=== PATIENT | male | born 1985 | race Caucasian/White ===

== ENCOUNTER 2019-06-29 14:00 | Emergency (ER) | payer OTHER, SELFPAY ==
[2019-06-29 14:02] VITALS: BP 159/115; PULSE 96; RESP 16; TEMP 35.6; O2SAT 99; BMI 40.1
--- NOTE | 2019-06-29 14:12 | CT_ITS ---
STUDY: CT ABDOMEN AND PELVIS WITHOUT CONTRAST REASON FOR EXAM: Male, 33 years old. PT STATED RT SIDE ABDOM PAIN X 4 DAYS, RADIATES TO BACK RADIATION DOSAGE (If Supplied By Facility): CTDIvol = ( 33.57 ) mGy, DLP = ( 2114.04 ) mGycm TECHNIQUE: Transaxial images were obtained from the dome of the diaphragm to the symphysis pubis without oral contrast, and without intravenous contrast. Sagittal and coronal images were reconstructed. Individualized dose optimization techniques were used for this CT. COMPARISON: None. FINDINGS: The visualized lung bases are unremarkable. The visualized portions of the heart are within normal limits. There is decreased attenuation of the liver consistent with steatosis. Normal gallbladder and extrahepatic biliary system. Normal spleen. Normal pancreas. Normal bilateral adrenal glands. Normal right kidney. Normal left kidney. There is a small hiatal hernia. Normal small intestine. Normal colon. The appendix is visualized and appears normal. Normal abdominal aorta. Normal inferior vena cava. Normal retroperitoneum. Normal urinary bladder. Normal abdominal wall. Mild degree of disc space narrowing and spondylosis at the L3-L4 level. CT/Abdomen/Pelvis without Cont IMPRESSION: Fatty infiltration of the liver. Electronically Signed: Truman Warren, at 15:05 EDT , Service support ,
--- NOTE | 2019-06-29 14:13 | ED.VISSUMM ---
- ER Visit Summary Date of Service: 06/29/19 Chief Complaint: Right flank pain History of Present Illness: The patient is a 33 M who presents with right flank pain. Started 3 days ago. He has sharp pains in his right flank that radiates forward. He went to an urgent care the day it started and they thought it was a pulled muscle so they gave him ibuprofen and muscle relaxers. He states that these are not helping. He denies any fevers. No nausea vomiting. Denies any urinary symptoms. He has no history of kidney stones. The pain is been constant for the 3 days. Physical Examination: Vital signs reviewed. HEENT exam unremarkable. Heart is regular rate and rhythm without murmurs. Lungs are clear to auscultation. Abdomen is soft and nontender. Extremities reveal no edema. Skin exam normal. Neurologic exam normal. Test Results: [] Emergency Department Course and Treatment: [] Treatment Plan: [] Disposition: [] Impression: [] This note was generated with [employer] software. It may contain incorrect words, spelling, and punctuation that were not noted in review of the chart prior to signing <Fantasma Freeman - Last Filed: 06/29/19 14:13> - ER Visit Summary Date of Service: 06/29/19 Chief Complaint: [] History of Present Illness: The patient is a 33 M [] Physical Examination: [] Test Results: CBC normal white count of 9. Hemoglobin 16. No bands. Electrolytes unremarkable normal creatinine and gap. Glucose 160. Liver enzymes unremarkable. UA normal. No blood or signs of infection. CT flank study done read by the radiologist and reviewed by me shows no acute abnormality. Fatty liver. But no signs of stone or obstruction. No signs of anything is causing his right flank pain. Emergency Department Course and Treatment: Patient turned over to me from the morning physician Dr. Nadeem Freeman. Labs are unremarkable. I did do a repeat exam at 1540 patient is doing well. Abdomen benign. Toradol really did not make any significant change in his discomfort. He and I discussed his history and exam and his test results. This is most likely musculoskeletal pain. Treatment Plan: Follow-up with a primary care physician. Motrin for pain. Return if worse. Disposition: discharge Impression: Cute right flank pain uncertain etiology This note was generated with [employer] software. It may contain incorrect words, spelling, and punctuation that were not noted in review of the chart prior to signing <Kevin Espinoza - Last Filed: 06/29/19 15:48> ED Disposition <Fantasma Freeman - Last Filed: 06/29/19 14:13> <Kevin Espinoza - Last Filed: 06/29/19 15:48> - Plan for ED Patient: Referrals: NOT,DEFINED [NON-STAFF] -
[2019-06-29] MEDS: Ketorolac 30 MG/ML Syringe IV (14:25)
[2019-06-29 14:31] LABS: Absolute Lymphocyte Count 2.61 X10^3/uL (0.83-4.51); Absolute Neutrophil Count 6.5 X10^3/uL (2.0-7.7); Basophil# 0.05 X10^3/uL; Basophil% 0.5 % (0-1); Eosinophil# 0.21 X10^3/uL; Eosinophils% 2.1 % (0-5); Hematocrit 47.4 % (40-54); Lymphocyte # 2.61 X10^3/ul (4.0); Lymphocyte % 26.5 % (19-41); Mean Corp Hgb Conc 33.8 g/dL (32-36); Mean Corpuscular Hgb 29.4 pg (27.0-32.0); Mean Platelet Vol. 10.3 fl (6.2-12.0); Monocyte# 0.43 X10^3/uL; Monocyte% 4.4 % (0-10); NRBC Flagged by Analyzer 0 % (0-5); Neutrophil # 6.48 X10^3/uL (2.7-7.7); Neutrophil % 65.8 % (47-70); Platelet Count 291 K/mm3 (150-450); RBC Distribution Width CV 11.9 % (11.6-14.6); RBC Distribution Width SD 37.2 fl (35.1-43.9); Red Blood Count 5.45 M/mm3 (4.6-6.2); White Blood Count 9.9 K/mm3 (4.4-11.0)
[2019-06-29 14:47] LABS: Bacteria 0 SEEN /hpf (None Seen); Mucous, Urine 0 SEEN /hpf (<or=2+); Red Blood Cells-Urine 0 SEEN /hpf (0-5); White Blood Cells 0 SEEN /hpf (0-5)
[2019-06-29 14:54] LABS: AST(SGOT) 28 U/L (15-37); Alanine Aminotransfer ALT/SGPT 68 U/L (16-61); Alkaline Phosphatase 94 U/L (45-117); Anion Gap 5 (5-15); BUN 12 mg/dL (7-18); BUN/Creat Ratio 13.7 RATIO (10-20); Bilirubin, Direct 0.15 mg/dL (0.00-0.30); Calcium,Total 8.5 mg/dL (8.5-10.1); Chloride 105 mmol/L (98-107); Creatinine, Serum 0.88 mg/dL (0.70-1.30); EST Glomerular Filtration Rate 106 mL/min (>60); Est Glom Filt Rate - Afr Amer 128 mL/min (>60); Estimated Creatinine Clearance 146.58 ml/min; Globulin 3.2 g/dL (2.2-4.2); Glucose 168 mg/dL (74-106); Potassium 3.8 mmol/L (3.5-5.1); Protein, Total 7.2 g/dL (6.4-8.2); Sodium Level 139 mmol/L (136-145)
[2019-06-29 15:04] LABS: Color, Urine Yellow (Yellow); Glucose, Dipstick 100 mg/dl (Normal); Ketone-Dipstick Negative (Negative); Leukocyte Esterase-Dipstick Negative /ul (Negative); Nitrite-Dipstick Negative (Negative); Occult Blood-Urine Negative /ul (Negative); Protein-Dipstick 15 mg/dl (Negative); Urine Bilirubin Dipstick Negative (Negative); Urine Clarity Sl. Cloudy (Clear); Urine Urobilinogen Normal (Normal)
[2019-06-29 15:05] VITALS: RESP 18
[2019-06-29 15:13] LABS: Squamous Epithelial Cells - UA 0-5 SEEN /hpf (0-5)
--- NOTE | 2019-06-29 15:48 | ED.DEP ---
ED Disposition - Plan for ED Patient: Disposition: Home or Assisted Living Instructions: ED Flank Pain Uncertain Cause Referrals: Jonathan Clark MD [STAFF PHYSICIAN] - As soon as possible Additional Instructions: Tylenol and/or Motrin for pain. If his right flank pain is not improving and to follow-up for further evaluation. All your labs today including your CAT scan were unremarkable.
[2019-06-29 15:59] VITALS: BP 134/67; PULSE 93; RESP 17; O2SAT 97
== END 2019-06-29 16:00 | disposition home or self-care (01) ==
PROVIDERS: Emergency Provider Emergency Medicine
DX: R10.9 Unspecified abdominal pain (principal); K76.0 Fatty (change of) liver, not elsewhere classified
CPT/HCPCS: 74176; 80048; 80076; 81001; 85025; 96374; 99283; A4216

== ENCOUNTER 2020-07-11 11:32 | Outpatient (RCR) | payer OTHER, SELFPAY | END 2020-08-15 23:59 | LOC: IMMUN 11:32 | PROVIDERS: Visit Provider Family Medicine | DX: Z23 Encounter for immunization (principal) | CPT/HCPCS: 0001A; 91300 ==

== ENCOUNTER → 2024-10-23 | Outpatient (CLI) | payer OTHER, SELFPAY ==
--- OUTSIDE RECORDS SUMMARY | 2024-10-23 10:05 | XMS RPT_ITS | CCD ---
Author Organization [facility] Care Team Providers Care Vessel Ordinary Seaman Name Role Phone Bob Avina Referring Unavailable Bob Avina Attending Unavailable Bre Serna Primary Care Unavailable Unavailable Primary Care Provider UnavailJUAN MANUEL Boyd Attending Unavailable JUAN MANUEL GENAO Attending Unavailable Allergies Allergy Classification Reported Allergen(s) Allergy Type Date of Onset Reaction(s) Facility (2 sources) Codeine; Translations: [CODEINE] Drug Allergy 06-29-2019 [facility] Repository (2 sources) Codeine Drug Allergy 06-04-2024 [facility] Work Phone: Medications Current Medications Medication Drug Class(es) Dates Sig (Normalized) Sig (Original) lisinopril 5 mg oral tablet (2 sources) Angiotensin Converting Enzyme Inhibitor Start: 05-07-2024 take 1 tablet by mouth in the morning lisinopril 5 mg tablet Take 1 tablet (5 mg) by mouth early in the morning.. 05/07/2024 Active metFORMIN hydrochloride 1000 mg oral tablet (2 sources) Biguanide Start: 04-26-2024 take 1 tablet by mouth every twelve hours metFORMIN (Glucophage) 1,000 mg tablet Take 1 tablet (1,000 mg) by mouth every 12 hours. 04/26/2024 Active Ozempic 0.25 mg or 0.5 mg (2 mg/3 mL) pen injector (2 sources) Start: 04-23-2024 Ozempic 0.25 mg or 0.5 mg (2 mg/3 mL) pen injector INJECT 0.25 MILLIGRAM UNDER SKIN WEEKLY 04/23/2024 Active Problems Active Problems Problem Classification Problem Date Documented Da te Episodic/Chronic Contraceptive and procreative management (5 sources) Patient encounter status; Translations: [Encounter for sterilization] Onset: 09-17-2024 06-04-2024 Episodic Unclassified (1 source) Patient encounter status 06-04-2024 Past or Other Problems Problem Classification Problem Date Documented Da te Episodic/Chronic Unclassified (2 sources) Onset: 06-04-2024 06-04-2024 Results Test Name Value Interpretation Reference Range Julio Cesar reddy Vasectomyon 09-17-2024 Juan Manuel Beaulieu MD MPH 09/17/2024 1:25 PM Vasectomy Date/Time: 09/17/2024 1:25 PM Performed by: Juan Manuel Beaulieu MD MPH Authorized by: Juan Manuel Beaulieu MD MPH Procedure discussed: discussed risks, benefits, and alternatives Sampler Radioactive Waste present: yes Timeout: timeout called immediately prior to procedure Prep: patient was prepped and draped in usual sterile fashion Prep type: Betadine Anesthesia: local anesthesia used Local anesthetic: lidocaine without epinephrine Procedure Details: Indications: desire for sterilization Laterality: bilateral Incisions: 2 Right Vas Deferens: Divided: yes Hemoclips applied: yes Cauterized: yes Left Vas Deferens: Divided: yes Hemoclips applied: yes Cauterized: yes Skin closure: suture Closure suture type: 3-0 chromic gut Post-Procedure Details: Pathology sent to lab for analysis: yes Outcome: patient tolerated procedure well with no complications Post-procedure interventions: sterile dressing applied and wound care instructions given Dressing type: antibiotic ointment Disposition: discharged home in satisfactory condition Plan Fu in 12 weeks with post VAS SA [facility] Work Phone: [facility] Work Phone: Stress Reporton 09-29-2023 Stress Report [facility] [address] [place] [address] MR#: [id number] Acct: [id number] Name: STEFAN BURTON Rep #: [id number] : 1985 37 From: Tiana Agosto MD Primary Care: Dr. Bre Serna MD Status: REG REF Referring Dr: Bob Avina MD Sex: M C Stress Test Report Date: 09/28/2023 Procedure: Exercise tolerance test Indications: Preoperative evaluation Consent: Per the patient Procedure: The patient exercised on a Dillon protocol for 9 minutes and 34 seconds achieving a peak heart rate of 173 bpm (94% predicted maximal heart rate) with a peak blood pressure 200/80 mmHg and a peak MET capacity of approximately 12.1 MET's. The baseline ECG demonstrated normal sinus rhythm. The peak exercise ECG demonstrated no significant ischemic changes. [There were no cardiac dysrhythmias pretest, during exercise, or recovery]. The functional capacity was considered normal for age. The patient had no complaint of chest discomfort during exercise or recovery. The examination was discontinued secondary to shortness of breath. Impression: 1. Technically adequate (percent predicted maximal heart rate greater than 85%) exercise tolerance test 2. Stress test is negative for exercise-induced chest pain. 3. Stress test test is negative for exercise-induced EKG changes of ischemia. 4. Functional capacity is normal for age This note was generated with Centrixation software. It may contain incorrect words, spelling, and punctuation that were not noted in checking the note before signing. 09/29/23 1445 Date Tiana Agosto MD CC: Dr. Bre Serna MD; Dr. Bob Avina MD Date Dictated: 09/29/231338 Date Transcribed: 09/29/231338 Gse Mechanic: ANDERSON Signed [facility] PROGRESSon 03-19-2020 PROGRESS HNO ID: [id number] Author: Khoi Sahu Service: ? Author Type: Physical Therapist Type: Progress Notes Filed: 03/19/2020 5:00 PM Note Text: 03/19/2020 [facility] REHABILITATION AND SPORTS THERAPY PHYSICAL THERAPY DISCONTINUANCE OF CARE Plan of Care Period: Start of Care Date: 07/13/19 Last Visit Date: 08/07/2019 Therapy Program: The following is a summary of the interventions provided for this episode of care; Therapeutic exercise, Manual therapy, Patient/Family/Caregive r Education and Body mechanics training Assessment: Based on most recent visit, patient was progressing as expected toward functional goals based on home exercise program compliance, pain levels and documented subjective information on progress. Unable to formally assess goal achievement, as patient has not returned to therapy or scheduled additional follow-up appointments. Reason for Discontinuation of Care: Patient has not returned to therapy or scheduled additional follow-up appointments. Khoi Sahu PT [facility] CNTHERAPYon 08-07-2019 CNTHERAPY OT/PT/Speech Visit (PTWS) STEFAN BURTON ([id number]) 1985 M Date Time Provider Department 08/07/19 10:00 AM BRIDGETT RODRIGUEZ (DIRECTOR OF SUSTAINABLE DESIGN) PTWS Date Time Provider Department Center 08/07/2019 10:00 AM [id number], NANCY (DIRECTOR OF SUSTAINABLE DESIGN) PTWS [facility] Reason for Visit: Physical Therapy [503] PT Discharge [752] Reason For Visit History Recorded Primary Visit Diagnosis:Acute bilateral low back pain with bilateral sciatica [M54.42, M54.41] Allergies As of Date: 08/07/2019 Noted Allergy Reaction CODEINE 07/11/2019 16 - Unknown Date Reviewed: 07/11/2019 Reviewed by: Amrita ([facility]) Kimberlyn - Fully Assessed Prescriptions as of 08/07/2019 Sig: CYCLOBENZAPRINE 10 MG TABLET Take 1 tablet by mouth three * Progress Notes: Moe Light PT 08/07/2019 1:11 PM Signed Episode Visit Count: 5 Therapist That Will Oversee The Plan Of Care: Khoi Sahu PT Start of Care Date: 07/13/19 Onset Date: 06/29/19 Patient Identified by Name and Date of : Yes REHABILITATION AND SPORTS THERAPY PHYSICAL THERAPY TREATMENT NOTE ASSESSMENT: Stefan Burton demonstrated difficulty with B feet numbness and sensitivity in feet if he has shoes off. Improvement in back and leg pain to no pain. Added desensitization techniques and toe curls to treatment and home program. Good tolerance to strengthening exercises in therapy and manual belt traction. The patient will continue to benefit from ongoing skilled physical therapy for core stabilization , manual belt traction, monitor foot sensitivity and plan of care update. PLAN FOR NEXT VISIT: Monitor delayed response to newly added desentization of B feet and POC update SUBJECTIVE: Patient Reason for Visit: Patient reports no back currently. He reports B feet still have numbness. He reports the hip strengthening with band has been helpful with hip pain. Pain: Pain Pain Level: 0 Pain Location: Foot - Right;Foot - Left Description: Numbness(also sensistivity in feet whe barefoot) Frequency: Intermittent Post Treatment Pain Post Treatment Pain Level: 0 Post Treatment Symptoms: Decrease sensisitvity in B feet and no numbness with walking with socks on OBJECTIVE MEASURES WITH LEVEL OF FUNCTION: Improved ability to walk with no shoes with less sensitivity at end of treatment today. TREATMENT: Therapeutic Exercise: 1: *Seated towel toe scrunches 1x20 2: Seated B big toe flexion and 2-4 toes extension 1x20 3: Desensitization B feet with towel and tapping with towel working the best for patient. 4: *Lacrosse ball mobs right and left feet x 2 minutes each(instruction on use off tennis ball or baseball at home) 5: prone press ups 2x10 with exhale at end range 6: Quadruped alt arm and leg lifts 2x12 with 1# on B legs 7: prone hip ext 1# SLR 2x12 B 8: back extension machine 70# 3x10 9: seated pulldowns with emphasis on posture, carson and rope overhead, elbows extended 4 plates and 3 mini 3x10 Skilled Intervention: Patient was educated in proper exercise technique and purpose for exercises. Reviewed and educated patient on additions/changes for home exercise program as above (*) Skilled judgment was provided in selection of appropriate interventions. Provided written instruction for home exercise program to facilitate proper performance and compliance. Correct performance of therapeutic exercises was facilitated with verbal and visual cuing. Manual Therapy: Manual Traction: (P) Manual lumbar belt traction midway through treatment with pt supine x12 minutes with LEs elevated on leg rest and force to pt tolerance. Skilled Intervention: Manual skills to improve joint mobility, ROM, and decrease pain. Utilized anatomy knowledge of the therapist, and assessment of patient's response to intervention. Billing: [facility]: Therapeutic Exercise ([id number]): 1:1 time: 37 minutes (2 units: 23-37 mins) Manual Therapy ([id number]): 1:1 time: 12 minutes (1 unit: 8-22 mins) Total time / Length of visit: 49 minutes Bridgett Rodriguez, PT-Severino Light PT Previous Version Khoi Sahu PT 03/19/2020 5:00 PM Signed 03/19/2020 [facility] REHABILITATION AND SPORTS THERAPY PHYSICAL THERAPY DISCONTINUANCE OF CARE Plan of Care Period: Start of Care Date: 07/13/19 Last Visit Date: 08/07/2019 Therapy Program: The following is a summary of the interventions provided for this episode of care; Therapeutic exercise, Manual therapy, Patient/Family/Caregive r Education and Body mechanics training Assessment: Based on most recent visit, patient was progressing as expected toward functional goals based on home exercise program compliance, pain levels and documented subjective information on progress. Unable to formally assess goal achievement, as patient has not returned to therapy or scheduled additional follow-up appointments. Reason for Discontinuation of Care: Patient has not returned to therapy or scheduled additional follow-up appointments. Khoi Sahu PT [facility] PROGRESSon 08-07-2019 PROGRESS HNO ID: [id number] Author: Moe (Pt) Kuldeep Service: ? Author Type: Physical Therapist Type: Progress Notes Filed: 08/07/2019 1:11 PM Note Text: Episode Visit Count: 5 Therapist That Will Oversee The Plan Of Care: Khoi Sahu PT Start of Care Date: 07/13/19 Onset Date: 06/29/19 Patient Identified by Name and Date of : Yes REHABILITATION AND SPORTS THERAPY PHYSICAL THERAPY TREATMENT NOTE ASSESSMENT: Stefan Burton demonstrated difficulty with B feet numbness and sensitivity in feet if he has shoes off. Improvement in back and leg pain to no pain. Added desensitization techniques and toe curls to treatment and home program. Good tolerance to strengthening exercises in therapy and manual belt traction. The patient will continue to benefit from ongoing skilled physical therapy for core stabilization , manual belt traction, monitor foot sensitivity and plan of care update. PLAN FOR NEXT VISIT: Monitor delayed response to newly added desentization of B feet and POC update SUBJECTIVE: Patient Reason for Visit: Patient reports no back currently. He reports B feet still have numbness. He reports the hip strengthening with band has been helpful with hip pain. Pain: Pain Pain Level: 0 Pain Location: Foot - Right;Foot - Left Description: Numbness(also sensistivity in feet whe barefoot) Frequency: Intermittent Post Treatment Pain Post Treatment Pain Level: 0 Post Treatment Symptoms: Decrease sensisitvity in B feet and no numbness with walking with socks on OBJECTIVE MEASURES WITH LEVEL OF FUNCTION: Improved ability to walk with no shoes with less sensitivity at end of treatment today. TREATMENT: Therapeutic Exercise: 1: *Seated towel toe scrunches 1x20 2: Seated B big toe flexion and 2-4 toes extension 1x20 3: Desensitization B feet with towel and tapping with towel working the best for patient. 4: *Lacrosse ball mobs right and left feet x 2 minutes each(instruction on use off tennis ball or baseball at home) 5: prone press ups 2x10 with exhale at end range 6: Quadruped alt arm and leg lifts 2x12 with 1# on B legs 7: prone hip ext 1# SLR 2x12 B 8: back extension machine 70# 3x10 9: seated pulldowns with emphasis on posture, carson and rope overhead, elbows extended 4 plates and 3 mini 3x10 Skilled Intervention: Patient was educated in proper exercise technique and purpose for exercises. Reviewed and educated patient on additions/changes for home exercise program as above (*) Skilled judgment was provided in selection of appropriate interventions. Provided written instruction for home exercise program to facilitate proper performance and compliance. Correct performance of therapeutic exercises was facilitated with verbal and visual cuing. Manual Therapy: Manual Traction: (P) Manual lumbar belt traction midway through treatment with pt supine x12 minutes with LEs elevated on leg rest and force to pt tolerance. Skilled Intervention: Manual skills to improve joint mobility, ROM, and decrease pain. Utilized anatomy knowledge of the therapist, and assessment of patient's response to intervention. Billing: [facility]: Therapeutic Exercise ([id number]): 1:1 time: 37 minutes (2 units: 23-37 mins) Manual Therapy ([id number]): 1:1 time: 12 minutes (1 unit: 8-22 mins) Total time / Length of visit: 49 minutes Bridgett Rodriguez, PT-Severino Light, PT [facility] CNTHERAPYon 08-01-2019 CNTHERAPY OT/PT/Speech Visit (PTWS) STEFAN BURTON ([id number]) 1985 M Date Time Provider Department 08/01/19 4:30 PM BRIDGETT RODRIGUEZ (DIRECTOR OF SUSTAINABLE DESIGN) PTWS Date Time Provider Department Center 08/01/2019 4:30 PM [id number], NANCY (DIRECTOR OF SUSTAINABLE DESIGN) PTWS [facility] Reason for Visit: Physical Therapy [503] Primary Visit Diagnosis:Acute bilateral low back pain with bilateral sciatica [M54.42, M54.41] Allergies As of Date: 08/01/2019 Noted Allergy Reaction CODEINE 07/11/2019 16 - Unknown Date Reviewed: 07/11/2019 Reviewed by: Amrita ([facility]) Kimberlyn - Fully Assessed Prescriptions as of 08/01/2019 Sig: CYCLOBENZAPRINE 10 MG TABLET Take 1 tablet by mouth three * Progress Notes: Khoi Sahu PT 08/01/2019 11:59 PM Signed Episode Visit Count: 4 Therapist That Will Oversee The Plan Of Care: Khoi Sahu PT Start of Care Date: 07/13/19 Onset Date: 06/29/19 Patient Identified by Name and Date of : Yes REHABILITATION AND SPORTS THERAPY PHYSICAL THERAPY TREATMENT NOTE ASSESSMENT: Stefan Burton demonstrated difficulty with numbness B knees to feet at start of treatment. No back pain today. Following manual belt traction right leg and foot numbness abolished and no change with left knee to foot numbness. Added hip abductor strengthening to treatment and home program and patient was receptive to this. The patient will continue to benefit from ongoing skilled physical therapy for progression of exercises and manual belt traction. PLAN FOR NEXT VISIT: Continue with extension based exercises, manual traction and hip abductor strengthening. SUBJECTIVE: Patient Reason for Visit: Patient reports left greater than right numbness from knees to feet. He reports no back or buttock pain..He reports if he tried to run he would not be able to due to hip weakness. Pain: Pain Pain Level: 0 Pain Location: Low Back/Lumbar Spine - Right;Low Back/Lumbar Spine - Left Frequency: Intermittent Additional Pain Information : Location 2 Pain Level 2: 0 Pain Location 2: (numbness only B LE from knees to feet.) Post Treatment Pain Post Treatment Pain Level: 0 OBJECTIVE MEASURES WITH LEVEL OF FUNCTION: Manual belt traction abolished right knee to foot numbness today. TREATMENT: Therapeutic Exercise: 1: Retro TM 1.0 mph x5 minutes 2: prone lying x3 minutes 3: prone on elbows x3 minutes 4: prone press ups 2x10 with exhale at end range(verbal cues for proper form) 5: prone hip ext SLR 2x12 B 6: standing lumbar extension 1x10 7: back extension machine 60# 3x10 8: stirring the pot at Hoist x12 CW and CCW facing each direction with 2 plates 9: seated pulldowns with emphasis on posture, carson and rope overhead, elbows extended 4 plates 3x10 10: *Quadruped alt arm and leg lifts 2x10. 11: *Blue Rep band at ankle resistive side stepping right and left length of // bars x 4 each direction(vended blue band for home use) Skilled Intervention: Patient was educated in proper exercise technique and purpose for exercises. Reviewed and educated patient on additions/changes for home exercise program as above (*) Skilled judgment was provided in selection of appropriate interventions. Provided written instruction for home exercise program to facilitate proper performance and compliance. Correct performance of therapeutic exercises was facilitated with verbal and visual cuing. Manual Therapy: Manual Traction: Manual lumbar belt traction at the end of session with pt supine x10 minutes with LEs elevated on leg rest and force to pt tolerance. Skilled Intervention: Manual skills to improve joint mobility, ROM, and decrease pain. Utilized anatomy knowledge of the therapist, and assessment of patient's response to intervention. Billing: [facility]: Therapeutic Exercise ([id number]): 1:1 time: 37 minutes (2 units: 23-37 mins) Manual Therapy ([id number]): 1:1 time: 10 minutes (1 unit: 8-22 mins) Total time / Length of visit: 47 minutes Bridgett Rodriguze, PT-Severino Sahu PT Previous Version [facility] PROGRESSon 08-01-2019 PROGRESS HNO ID: [id number] Author: Khoi (Crescencio) Luis Alberto Service: ? Author Type: Physical Therapist Type: Progress Notes Filed: 08/01/2019 11:59 PM Note Text: Episode Visit Count: 4 Therapist That Will Oversee The Plan Of Care: Khoi Sahu PT Start of Care Date: 07/13/19 Onset Date: 06/29/19 Patient Identified by Name and Date of : Yes REHABILITATION AND SPORTS THERAPY PHYSICAL THERAPY TREATMENT NOTE ASSESSMENT: Stefan Tristen Burton demonstrated difficulty with numbness B knees to feet at start of treatment. No back pain today. Following manual belt traction right leg and foot numbness abolished and no change with left knee to foot numbness. Added hip abductor strengthening to treatment and home program and patient was receptive to this. The patient will continue to benefit from ongoing skilled physical therapy for progression of exercises and manual belt traction. PLAN FOR NEXT VISIT: Continue with extension based exercises, manual traction and hip abductor strengthening. SUBJECTIVE: Patient Reason for Visit: Patient reports left greater than right numbness from knees to feet. He reports no back or buttock pain..He reports if he tried to run he would not be able to due to hip weakness. Pain: Pain Pain Level: 0 Pain Location: Low Back/Lumbar Spine - Right;Low Back/Lumbar Spine - Left Frequency: Intermittent Additional Pain Information : Location 2 Pain Level 2: 0 Pain Location 2: (numbness only B LE from knees to feet.) Post Treatment Pain Post Treatment Pain Level: 0 OBJECTIVE MEASURES WITH LEVEL OF FUNCTION: Manual belt traction abolished right knee to foot numbness today. TREATMENT: Therapeutic Exercise: 1: Retro TM 1.0 mph x5 minutes 2: prone lying x3 minutes 3: prone on elbows x3 minutes 4: prone press ups 2x10 with exhale at end range(verbal cues for proper form) 5: prone hip ext SLR 2x12 B 6: standing lumbar extension 1x10 7: back extension machine 60# 3x10 8: stirring the pot at Hoist x12 CW and CCW facing each direction with 2 plates 9: seated pulldowns with emphasis on posture, carson and rope overhead, elbows extended 4 plates 3x10 10: *Quadruped alt arm and leg lifts 2x10. 11: *Blue Rep band at ankle resistive side stepping right and left length of // bars x 4 each direction(vended blue band for home use) Skilled Intervention: Patient was educated in proper exercise technique and purpose for exercises. Reviewed and educated patient on additions/changes for home exercise program as above (*) Skilled judgment was provided in selection of appropriate interventions. Provided written instruction for home exercise program to facilitate proper performance and compliance. Correct performance of therapeutic exercises was facilitated with verbal and visual cuing. Manual Therapy: Manual Traction: Manual lumbar belt traction at the end of session with pt supine x10 minutes with LEs elevated on leg rest and force to pt tolerance. Skilled Intervention: Manual skills to improve joint mobility, ROM, and decrease pain. Utilized anatomy knowledge of the therapist, and assessment of patient's response to intervention. Billing: [facility]: Therapeutic Exercise ([id number]): 1:1 time: 37 minutes (2 units: 23-37 mins) Manual Therapy ([id number]): 1:1 time: 10 minutes (1 unit: 8-22 mins) Total time / Length of visit: 47 minutes ANTOINE Huizar PT [facility] CNTHERAPYon 07-26-2019 CNTHERAPY OT/PT/Speech Visit (PTWS) STEFAN BURTON ([id number]) 1985 M Date Time Provider Department 07/26/19 3:45 PM KHOI SAHU (PT) PTWS Date Time Provider Department Center 07/26/2019 3:45 PM [id number], BRENT (PT) PTWS [facility] Reason for Visit: Physical Therapy [503] Primary Visit Diagnosis:Acute bilateral low back pain with bilateral sciatica [M54.42, M54.41] Allergies As of Date: 07/26/2019 Noted Allergy Reaction CODEINE 07/11/2019 16 - Unknown Date Reviewed: 07/11/2019 Reviewed by: Amrita Sofia - Fully Assessed Prescriptions as of 07/26/2019 Sig: CYCLOBENZAPRINE 10 MG TABLET Take 1 tablet by mouth three * Progress Notes: Khoi Sahu PT 07/26/2019 4:53 PM Signed Episode Visit Count: 3 Therapist That Will Oversee The Plan Of Care: Khoi Sahu PT Start of Care Date: 07/13/19 Onset Date: 06/29/19 Patient Identified by Name and Date of : Yes REHABILITATION AND SPORTS THERAPY PHYSICAL THERAPY TREATMENT NOTE ASSESSMENT: Stefan Burton demonstrated improvements in pain, exercise tolerance, functional mobility and tolerance for work tasks. The patient will continue to benefit from ongoing skilled physical therapy for supervised progression of therex, postural correction/body mechanics and manual therapy. PLAN FOR NEXT VISIT: Review, correct and progress HEP to tolerance. Continue with active therex to address pain, ROM and strength using his extension directional preference. Continue manual belt traction. SUBJECTIVE: Patient Reason for Visit: Pt reports continued progressive improvements, even since last session. He reports that he is benefitting from PT and belt traction. He reports compliance with HEP 1-2x day. Specifically he reports that he is moving better and having less numbness in legs. He reports that numbness is still present in feet but less in legs. He reports improved tolerance for stairs at work. He also reports improved tolerance to bend at work to do a full body pat down. He describes his pain as nothing like it was. Pain: Pain Pain Level: 2 Pain Location: Low Back/Lumbar Spine - Left;Buttocks - Left;Hip - Left Description: Sharp Frequency: Intermittent Post Treatment Pain Post Treatment Pain Level: No Change Post Treatment Pain Location: Low Back/Lumbar Spine - Left;Buttocks - Left;Hip - Left Post Treatment Symptoms: Definitely no increase in pain and pt reported feeling approximately the same as he was leaving. OBJECTIVE MEASURES WITH LEVEL OF FUNCTION: TREATMENT: Therapeutic Exercise: 1: Retro TM 1.0 mph x5 minutes 2: prone lying x3 minutes 3: prone on elbows x3 minutes 4: prone press ups 2x10 with exhale at end range 5: prone hip ext SLR 2x10 B 6: standing lumbar extension reviewed for HEP and continuation encouraged 7: back extension machine 60# 3x10 8: stirring the pot at Hoist x10 CW and CCW facing each direction with 2 plates 9: seated pulldowns with emphasis on posture, carson and rope overhead, elbows extended 3 plates 2x10 Skilled Intervention: Patient was educated in proper exercise technique and purpose for exercises. Skilled judgment was provided in selection of appropriate interventions. Correct performance of therapeutic exercises was facilitated with verbal, visual and tactile cuing. Patient education as noted. Manual Therapy: Manual Traction: Manual lumbar belt traction at the end of session with pt supine x12 minutes with LEs elevated on leg rest and force to pt tolerance. Skilled Intervention: Manual skills to improve joint mobility, ROM, and decrease pain. Utilized anatomy knowledge of the therapist, and assessment of patient's response to intervention. Billing: [facility]: Therapeutic Exercise ([id number]): 1:1 time: 33 minutes (2 units: 23-37 mins) Manual Therapy ([id number]): 1:1 time: 12 minutes (1 unit: 8-22 mins) Total time / Length of visit: 45 minutes Khoi Sahu PT [facility] PROGRESSon 07-26-2019 PROGRESS HNO ID: [id number] Author: Khoi Sahu Service: ? Author Type: Physical Therapist Type: Progress Notes Filed: 07/26/2019 4:53 PM Note Text: Episode Visit Count: 3 Therapist That Will Oversee The Plan Of Care: Khoi Sahu PT Start of Care Date: 07/13/19 Onset Date: 06/29/19 Patient Identified by Name and Date of : Yes REHABILITATION AND SPORTS THERAPY PHYSICAL THERAPY TREATMENT NOTE ASSESSMENT: Stefan Burton demonstrated improvements in pain, exercise tolerance, functional mobility and tolerance for work tasks. The patient will continue to benefit from ongoing skilled physical therapy for supervised progression of therex, postural correction/body mechanics and manual therapy. PLAN FOR NEXT VISIT: Review, correct and progress HEP to tolerance. Continue with active therex to address pain, ROM and strength using his extension directional preference. Continue manual belt traction. SUBJECTIVE: Patient Reason for Visit: Pt reports continued progressive improvements, even since last session. He reports that he is benefitting from PT and belt traction. He reports compliance with HEP 1-2x day. Specifically he reports that he is moving better and having less numbness in legs. He reports that numbness is still present in feet but less in legs. He reports improved tolerance for stairs at work. He also reports improved tolerance to bend at work to do a full body pat down. He describes his pain as nothing like it was. Pain: Pain Pain Level: 2 Pain Location: Low Back/Lumbar Spine - Left;Buttocks - Left;Hip - Left Description: Sharp Frequency: Intermittent Post Treatment Pain Post Treatment Pain Level: No Change Post Treatment Pain Location: Low Back/Lumbar Spine - Left;Buttocks - Left;Hip - Left Post Treatment Symptoms: Definitely no increase in pain and pt reported feeling approximately the same as he was leaving. OBJECTIVE MEASURES WITH LEVEL OF FUNCTION: TREATMENT: Therapeutic Exercise: 1: Retro TM 1.0 mph x5 minutes 2: prone lying x3 minutes 3: prone on elbows x3 minutes 4: prone press ups 2x10 with exhale at end range 5: prone hip ext SLR 2x10 B 6: standing lumbar extension reviewed for HEP and continuation encouraged 7: back extension machine 60# 3x10 8: stirring the pot at Hoist x10 CW and CCW facing each direction with 2 plates 9: seated pulldowns with emphasis on posture, carson and rope overhead, elbows extended 3 plates 2x10 Skilled Intervention: Patient was educated in proper exercise technique and purpose for exercises. Skilled judgment was provided in selection of appropriate interventions. Correct performance of therapeutic exercises was facilitated with verbal, visual and tactile cuing. Patient education as noted. Manual Therapy: Manual Traction: Manual lumbar belt traction at the end of session with pt supine x12 minutes with LEs elevated on leg rest and force to pt tolerance. Skilled Intervention: Manual skills to improve joint mobility, ROM, and decrease pain. Utilized anatomy knowledge of the therapist, and assessment of patient's response to intervention. Billing: [facility]: Therapeutic Exercise ([id number]): 1:1 time: 33 minutes (2 units: 23-37 mins) Manual Therapy ([id number]): 1:1 time: 12 minutes (1 unit: 8-22 mins) Total time / Length of visit: 45 minutes Khoi Sahu PT [facility] CNTHERAPYon 07-18-2019 CNTHERAPY OT/PT/Speech Visit (PTWS) STEFAN BURTON ([id number]) 1985 M Date Time Provider Department 07/18/19 5:30 PM KHOI SAHU (PT) PTWS Date Time Provider Department Center 07/18/2019 5:30 PM [id number], BRENT (PT) PTWS [facility] Reason for Visit: Physical Therapy [503] Primary Visit Diagnosis:Acute bilateral low back pain with bilateral sciatica [M54.42, M54.41] Allergies As of Date: 07/18/2019 Noted Allergy Reaction CODEINE 07/11/2019 16 - Unknown Date Reviewed: 07/11/2019 Reviewed by: Amrita ([facility]) Kimberlyn - Fully Assessed Prescriptions as of 07/18/2019 Sig: PREDNISONE 10 MG TABLET Take 6 tabs for 3 days, then * CYCLOBENZAPRINE 10 MG TABLET Take 1 tablet by mouth three * Progress Notes: Khoi Sahu PT 07/18/2019 6:39 PM Signed Episode Visit Count: 2 Therapist That Will Oversee The Plan Of Care: Khoi Sahu PT Start of Care Date: 07/13/19 Onset Date: 06/29/19 Patient Identified by Name and Date of : Yes REHABILITATION AND SPORTS THERAPY PHYSICAL THERAPY TREATMENT NOTE ASSESSMENT: Stfean Burton demonstrated difficulty with similar symptoms that are much lower intensity and improvements in pain, numbness, ROM, car transfers and overall improvements in functional mobility. The patient will continue to benefit from ongoing skilled physical therapy for supervised progression of therex, postural correction and manual lumbar belt traction. PLAN FOR NEXT VISIT: Review, correct and progress HEP to tolerance. Continue with active therex to address pain, ROM and strength using his extension directional preference. Peripheral symptoms will need to be monitored regularly. Consider manual belt traction next visit and modalities prn. Continue postural correction and body mechanics instruction. SUBJECTIVE: Patient Reason for Visit: Pt reports that overall he is better compared to his status at evaluation. He reports that he is having a lot of the same symptoms but that pain and numbness are a lot less. He reports that he has not had any of the shocks down his legs that cause his legs to give out. He reports that the ROM in his spine is improved. He reports that getting into and out of the car is a lot easier. He reports compliance with HEP 2-3x day. He reports improved tolerance for work tasks as well. Prolonged sitting still causes significant symptoms. Pain: Pain Pain Level: 2 Pain Location: Low Back/Lumbar Spine - Left;Buttocks - Left;Hip - Left Description: Sharp Frequency: Intermittent Post Treatment Pain Post Treatment Pain Level: No Change Post Treatment Pain Location: Low Back/Lumbar Spine - Left;Buttocks - Left;Hip - Left Post Treatment Pain Description: (no significant change compared to start of session) Post Treatment Symptoms: During traction pt reported that his symptoms were abolished. As he was leaving he denied any pain and reported only soreness that he rated 2/10 similar to start of session. OBJECTIVE MEASURES WITH LEVEL OF FUNCTION: TREATMENT: Therapeutic Exercise: 1: Retro TM 0.8 mph x4 minutes 2: prone lying x3 minutes 3: prone on elbows x3 minutes 4: prone press ups 2x10 5: prone hip ext SLR attempted but stopped secondary to mild increase in pain 6: *standing lumbar extension 2x10 in pain-free range 7: back extension machine 50# 3x10 Skilled Intervention: Patient was educated in proper exercise technique and purpose for exercises. Reviewed and educated patient on additions/changes for home exercise program as above (*) Skilled judgment was provided in selection of appropriate interventions. Correct performance of therapeutic exercises was facilitated with verbal and visual cuing. Patient education as noted. Manual Therapy: Manual Traction: Manual lumbar belt traction at the end of session with pt supine x12 minutes with LEs elevated on leg rest and force to pt tolerance. Skilled Intervention: Manual skills to improve joint mobility, ROM, and decrease pain. Utilized anatomy knowledge of the therapist, and assessment of patient's response to intervention. Billing: [facility]: Therapeutic Exercise ([id number]): 1:1 time: 33 minutes (2 units: 23-37 mins) Manual Therapy ([id number]): 1:1 time: 12 minutes (1 unit: 8-22 mins) Total time / Length of visit: 45 minutes Khoi Sahu PT [facility] PROGRESSon 07-18-2019 PROGRESS HNO ID: [id number] Author: Khoi (Pt) Luis Ablerto Service: ? Author Type: Physical Therapist Type: Progress Notes Filed: 07/18/2019 6:39 PM Note Text: Episode Visit Count: 2 Therapist That Will Oversee The Plan Of Care: Khoi Sahu PT Start of Care Date: 07/13/19 Onset Date: 06/29/19 Patient Identified by Name and Date of : Yes REHABILITATION AND SPORTS THERAPY PHYSICAL THERAPY TREATMENT NOTE ASSESSMENT: Stefan Burton demonstrated difficulty with similar symptoms that are much lower intensity and improvements in pain, numbness, ROM, car transfers and overall improvements in functional mobility. The patient will continue to benefit from ongoing skilled physical therapy for supervised progression of therex, postural correction and manual lumbar belt traction. PLAN FOR NEXT VISIT: Review, correct and progress HEP to tolerance. Continue with active therex to address pain, ROM and strength using his extension directional preference. Peripheral symptoms will need to be monitored regularly. Consider manual belt traction next visit and modalities prn. Continue postural correction and body mechanics instruction. SUBJECTIVE: Patient Reason for Visit: Pt reports that overall he is better compared to his status at evaluation. He reports that he is having a lot of the same symptoms but that pain and numbness are a lot less. He reports that he has not had any of the shocks down his legs that cause his legs to give out. He reports that the ROM in his spine is improved. He reports that getting into and out of the car is a lot easier. He reports compliance with HEP 2-3x day. He reports improved tolerance for work tasks as well. Prolonged sitting still causes significant symptoms. Pain: Pain Pain Level: 2 Pain Location: Low Back/Lumbar Spine - Left;Buttocks - Left;Hip - Left Description: Sharp Frequency: Intermittent Post Treatment Pain Post Treatment Pain Level: No Change Post Treatment Pain Location: Low Back/Lumbar Spine - Left;Buttocks - Left;Hip - Left Post Treatment Pain Description: (no significant change compared to start of session) Post Treatment Symptoms: During traction pt reported that his symptoms were abolished. As he was leaving he denied any pain and reported only soreness that he rated 2/10 similar to start of session. OBJECTIVE MEASURES WITH LEVEL OF FUNCTION: TREATMENT: Therapeutic Exercise: 1: Retro TM 0.8 mph x4 minutes 2: prone lying x3 minutes 3: prone on elbows x3 minutes 4: prone press ups 2x10 5: prone hip ext SLR attempted but stopped secondary to mild increase in pain 6: *standing lumbar extension 2x10 in pain-free range 7: back extension machine 50# 3x10 Skilled Intervention: Patient was educated in proper exercise technique and purpose for exercises. Reviewed and educated patient on additions/changes for home exercise program as above (*) Skilled judgment was provided in selection of appropriate interventions. Correct performance of therapeutic exercises was facilitated with verbal and visual cuing. Patient education as noted. Manual Therapy: Manual Traction: Manual lumbar belt traction at the end of session with pt supine x12 minutes with LEs elevated on leg rest and force to pt tolerance. Skilled Intervention: Manual skills to improve joint mobility, ROM, and decrease pain. Utilized anatomy knowledge of the therapist, and assessment of patient's response to intervention. Billing: [facility]: Therapeutic Exercise ([id number]): 1:1 time: 33 minutes (2 units: 23-37 mins) Manual Therapy ([id number]): 1:1 time: 12 minutes (1 unit: 8-22 mins) Total time / Length of visit: 45 minutes Khoi Sahu PT [facility] CNTHERAPYon 07-13-2019 CNTHERAPY OT/PT/Speech Visit (PTWS) STEFAN BURTON ([id number]) 1985 M Date Time Provider Department 07/13/19 3:00 PM KHOI SAHU (PT) PTWS Date Time Provider Department Center 07/13/2019 3:00 PM [id number], BRENT (PT) PTWS [facility] Reason for Visit: PT Eval [647] Visit Diagnosis:Acute bilateral low back pain with bilateral sciatica [M54.42, M54.41] Allergies As of Date: 07/13/2019 Noted Allergy Reaction CODEINE 07/11/2019 16 - Unknown Date Reviewed: 07/11/2019 Reviewed by: Amrita ([facility]) Kimberlyn - Fully Assessed Prescriptions as of 07/13/2019 Sig: PREDNISONE 10 MG TABLET Take 6 tabs for 3 days, then * CYCLOBENZAPRINE 10 MG TABLET Take 1 tablet by mouth three * Progress Notes: Khoi Sahu PT 07/13/2019 5:29 PM Signed Episode Visit Count: 1 Therapist That Will Oversee The Plan Of Care: Khoi Sahu PT Start of Care Date: 07/13/19 Onset Date: 06/29/19 Patient Identified by Name and Date of : Yes REHABILITATION AND SPORTS THERAPY PHYSICAL THERAPY EVALUATION PLAN OF CARE: Assessment: Stefan Burton presents with the diagnosis of B low back pain with B sciatica. He presents with impairments of pain, postural deficits, LE weakness, postural weakness, ROM limitations, gait difficulties and resulting functional limitations. He may benefit from skilled therapy services to improve pain, posture, ROM, postural strength, LE strength and facilitate a return to prior functional level without limitations. Classification Low Back Pain Subgroup Classification: Specific exercise subgroup: recommended visits 8. Specific Exercies Subgroup Classification based on: directional preference Prognosis: Good Good due to: current objective clinical presentation;good overall health status;acuteness of condition;within-sessio n changes at evaluation;good support system/ coping skills Goals for Episode of Care: created on 07/13/19 through 08/10/19 Independent in home exercises. Patient will decrease pain to 0/10 at rest and with functional activities to allow patient to improve working at home and all job requirements. Restore pain-free lumbar ROM to WFL to allow for improved tolerance with bending and rising. Stand / Walk without limitations, without pain/symptoms. Sleep through night without pain/symptoms. Sit without limitations, without pain/symptoms to allow for increased sitting tolerance. Patient will be able to tolerate sitting, rising, bending, lifting, working and stairs without increased symptoms. Patient will increase strength of postural muscles to WFL and L LE to 5/5 to allow for return to prior functional status, normalized gait mechanics, perform ADLs and negotiate stairs. Planned Interventions, Frequency, and Duration: Current Frequency: 2x/week Duration: 4 weeks Total Number of Visits Planned: 8 Planned Treatment Interventions: Therapeutic exercise;Manual therapy;Therapeutic activities;Patient/Fami ly/Caregiver Education;Self-mcc management;Gait Training;Modalities;Bod y Mechanics TrainingUltrasound;E-St im Unattended PLAN FOR NEXT VISIT: Review, correct and progress HEP to tolerance. Continue with active therex to address pain, ROM and strength using his extension directional preference. Peripheral symptoms will need to be monitored regularly. Consider manual belt traction next visit and modalities prn. Continue postural correction and body mechanics instruction. Patient demonstrates good understanding of plan of care and treatment. The above goals and plan of care were discussed and agreed upon by patient/family. SUBJECTIVE: Stefan Burton is a 33 year old male seen today for intermittent pain in B LB and B LEs. He reports B numbness in feet and LEs that is constant. He reports that intensity and frequency of pain in back varies. He also reports intermittent pain in L hip/buttock. He reports intermittent shocks of pain that radiated into LEs with legs giving out twice to the point that he fell. Radicular LE symptoms occurred with rising from low surfaces. Patient Goals: alleviate pain Functional Limitations: sitting;working;rising from a chair;bending;lifting Prior Level of Function: Independent without limitations Relevant History Employment: Safety Officer: See Comment Safety Officer Occupation: [employer] Intake Information: Prescription present Previous Treatment: Chiropractor?;Muscle relaxer?;Steroids? Falls Interview: Fall without injury in the last year(LEs gave out twice) Red Flags Vertebral Fracture Clinical Reasoning: No identified risk factors Abdominal Aortic Aneurysm Clinical Reasoning: No identified risk factors. Cancer Clinical Reasoning: No identified risk factors. Infection Clinical Reasoning: No identified risk factors. Cauda Equina Syndrome Clinical Reasoning: Proceed with caution(constipation) Red Flags - Cervical Cancer Clinical Reasoning: No identified risk factors. Infection Clinical Reasoning: No identified risk factors. Spine History Symptoms Location at Onset: Back Symptoms Since Onset: Worsening Pain is Worse Always: Sitting;Bending;Prolong ed positions(Shooting LE pains occur with spine flexion.) Pain is Better Sometimes: (recliner) Previous Episodes: Yes Previous Spine Episodes: 5 years ago muscle spasm that fully resolved Sleeping Position: Side lying right(currently in recliner) Sleep Affected by Pain: Pain keeps from falling asleep;Pain awakens Pain: Pain Pain Level: (3-4/10 currently, 7/10 at worst) Pain Location: Low Back/Lumbar Spine - Right;Low Back/Lumbar Spine - Left;Buttocks - Left Description: Numbness;Sharp Frequency: Intermittent;With movement;Sitting(freque nt and consistent but varies in location/intensity) Post Treatment Pain Post Treatment Pain Level: 3 Post Treatment Pain Location: Low Back/Lumbar Spine - Left;Buttocks - Left;Hip - Left Post Treatment Pain Description: (better and stretched out) Post Treatment Symptoms: After and during prone therex he denied any increase in pain. He reported feeling stretched out after session and denied any LE symptoms. He reported that walking out was less painful than walking into department. PROMIS Scales T-scores: mean of general population = 50. 5 points is clinically meaningfully difference Percentiles provide an indication of how the patient's score ranks in relation to the general population. Higher percentile rankings indicate better function/quality of life. 50th percentile is the average of the general population and indicates half of respondents had a worse score. T-scores: mean of general population = 50. 5 points is clinically meaningfully difference Percentiles provide an indication of how the patient's score ranks in relation to the general population. Higher percentile rankings indicate better function/quality of life. 50th percentile is the average of the general population and indicates half of respondents had a worse score. OBJECTIVE MEASURES WITH LEVEL OF FUNCTION: Posture / Alignment Posture: Rounded shoulders;Forward head;Increased thoracic kyphosis;Comments Posture comment: Pt reports that current posture is related to pain but typically he has very good posture with chest out and shoulders back. Reflexes - Lower Extremity R Patellar: Normal R Achilles: Normal L Patellar: Normal L Achilles: Normal Spine Observations R Lumbar Spine Palpation Tenderness: No tenderness noted L Lumbar Spine Palpation Tenderness: Paraspinals(trunk) Sensation - Lumbar Sensation: Impaired Impaired Sensation: Lateral thigh (Lateral femoral cutaneous nerve)(Left) Impaired Lateral Thigh Comments: Pt has decreased sensation that is altered at anterior and lateral L thigh compared to R with numbness at times in B LEs. 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 R LE Strength: No myotomal weakness currently L LE Strength: asymmetrical myotomal weakness in L great toe extension and L ankle DF. Pt also reports intermittent difficulty with foot clearance during gait. L Ankle Dorsiflexion (L4): 4-/5 L Great Toes Extension (L5, S1): 3-/5 Special Tests - Hip and Spine Hip and Spine Special Tests: SLR Test SLR Test: Right Positive;Left Positive Gait Gait Observation: Pt has antalgic pattern. Education: Education Learning Preferences: Demonstration;Explanati on;Performance;Printed Materials Barriers: None Learning/educational needs: Plan of Care;Home exercise program;Posture;Body Mechanics Education Provided: Yes, see treatment interventions for education provided Education Provided To: Patient Education Mode/Type: Demonstration;Explanati on/Discussion;Literatur e/Printed Materials;Performance Response to Education/Teach Back: States/Identifies;Retur n Demonstration;Requires Review/Additional Education TREATMENT: Evaluation Therapeutic Exercise: 1: Pt was educated extensively on anatomy of symptomatic area, likely source of symptoms and rationale for recommended plan of care. The effects of posture and body mechanics explained. Pictures and a model of the spine were used to clarify all education. He was educated on his directional preference and the effects of flexion and extension of lumbar spine on disc mechanics. He was educated on the difference between centralization and peripheralization of symptoms with all precautions. The impact of all of these things on his ability to do his job were discussed at length and recommendations made. He was repeatedly instructed to stop any exercise or activity that causes increased pain, especially peripheral symptoms. 2: *prone with pillows under abdomen discussed as an option but he was advised that this will not likely be necessary. 3: *prone lying x3 minutes 4: *prone on elbows x3 minutes 5: *prone press ups 2x5 Skilled Intervention: Patient was educated in proper exercise technique and purpose for exercises. Reviewed and educated patient on additions/changes for home exercise program as above (*) Skilled judgment was provided in selection of appropriate interventions. Provided written instruction for home exercise program to facilitate proper performance and compliance. Correct performance of therapeutic exercises was facilitated with verbal, visual and tactile cuing. Patient education as noted. Billing: [facility]: Evaluation - Moderate Complexity (24320) Therapeutic Exercise ([id number]): 1:1 time: 30 minutes (2 units: 23-37 mins) Total time / Length of visit: 75 minutes Khoi Sahu PT [facility] PROGRESSon 07-13-2019 PROGRESS HNO ID: [id number] Author: Khoi (Crescencio) Luis Alberto Service: ? Author Type: Physical Therapist Type: Progress Notes Filed: 07/13/2019 5:29 PM Note Text: Episode Visit Count: 1 Therapist That Will Oversee The Plan Of Care: Khoi Sahu PT Start of Care Date: 07/13/19 Onset Date: 06/29/19 Patient Identified by Name and Date of : Yes [facility] PHYSICAL THERAPY EVALUATION PLAN OF CARE: Assessment: Stefan Burton presents with the diagnosis of B low back pain with B sciatica. He presents with impairments of pain, postural deficits, LE weakness, postural weakness, ROM limitations, gait difficulties and resulting functional limitations. He may benefit from skilled therapy services to improve pain, posture, ROM, postural strength, LE strength and facilitate a return to prior functional level without limitations. Classification Low Back Pain Subgroup Classification: Specific exercise subgroup: recommended visits 8. Specific Exercies Subgroup Classification based on: directional preference Prognosis: Good Good due to: current objective clinical presentation;good overall health status;acuteness of condition;within-sessio n changes at evaluation;good support system/ coping skills Goals for Episode of Care: created on 07/13/19 through 08/10/19 Independent in home exercises. Patient will decrease pain to 0/10 at rest and with functional activities to allow patient to improve working at home and all job requirements. Restore pain-free lumbar ROM to WFL to allow for improved tolerance with bending and rising. Stand / Walk without limitations, without pain/symptoms. Sleep through night without pain/symptoms. Sit without limitations, without pain/symptoms to allow for increased sitting tolerance. Patient will be able to tolerate sitting, rising, bending, lifting, working and stairs without increased symptoms. Patient will increase strength of postural muscles to WFL and L LE to 5/5 to allow for return to prior functional status, normalized gait mechanics, perform ADLs and negotiate stairs. Planned Interventions, Frequency, and Duration: Current Frequency: 2x/week Duration: 4 weeks Total Number of Visits Planned: 8 Planned Treatment Interventions: Therapeutic exercise;Manual therapy;Therapeutic activities;Patient/Fami ly/Caregiver Education;Self-mcc management;Gait Training;Modalities;Bod y Mechanics TrainingUltrasound;E-St im Unattended PLAN FOR NEXT VISIT: Review, correct and progress HEP to tolerance. Continue with active therex to address pain, ROM and strength using his extension directional preference. Peripheral symptoms will need to be monitored regularly. Consider manual belt traction next visit and modalities prn. Continue postural correction and body mechanics instruction. Patient demonstrates good understanding of plan of care and treatment. The above goals and plan of care were discussed and agreed upon by patient/family. SUBJECTIVE: Stefan Burton is a 33 year old male seen today for intermittent pain in B LB and B LEs. He reports B numbness in feet and LEs that is constant. He reports that intensity and frequency of pain in back varies. He also reports intermittent pain in L hip/buttock. He reports intermittent shocks of pain that radiated into LEs with legs giving out twice to the point that he fell. Radicular LE symptoms occurred with rising from low surfaces. Patient Goals: alleviate pain Functional Limitations: sitting;working;rising from a chair;bending;lifting Prior Level of Function: Independent without limitations Relevant History Employment: Safety Officer: See Comment Safety Officer Occupation: [employer] Intake Information: Prescription present Previous Treatment: Chiropractor?;Muscle relaxer?;Steroids? Falls Interview: Fall without injury in the last year(LEs gave out twice) Red Flags Vertebral Fracture Clinical Reasoning: No identified risk factors Abdominal Aortic Aneurysm Clinical Reasoning: No identified risk factors. Cancer Clinical Reasoning: No identified risk factors. Infection Clinical Reasoning: No identified risk factors. Cauda Equina Syndrome Clinical Reasoning: Proceed with caution(constipation) Red Flags - Cervical Cancer Clinical Reasoning: No identified risk factors. Infection Clinical Reasoning: No identified risk factors. Spine History Symptoms Location at Onset: Back Symptoms Since Onset: Worsening Pain is Worse Always: Sitting;Bending;Prolong ed positions(Shooting LE pains occur with spine flexion.) Pain is Better Sometimes: (recliner) Previous Episodes: Yes Previous Spine Episodes: 5 years ago muscle spasm that fully resolved Sleeping Position: Side lying right(currently in recliner) Sleep Affected by Pain: Pain keeps from falling asleep;Pain awakens Pain: Pain Pain Level: (3-4/10 currently, 7/10 at worst) Pain Location: Low Back/Lumbar Spine - Right;Low Back/Lumbar Spine - Left;Buttocks - Left Description: Numbness;Sharp Frequency: Intermittent;With movement;Sitting(freque nt and consistent but varies in location/intensity) Post Treatment Pain Post Treatment Pain Level: 3 Post Treatment Pain Location: Low Back/Lumbar Spine - Left;Buttocks - Left;Hip - Left Post Treatment Pain Description: (better and stretched out) Post Treatment Symptoms: After and during prone therex he denied any increase in pain. He reported feeling stretched out after session and denied any LE symptoms. He reported that walking out was less painful than walking into department. PROMIS Scales T-scores: mean of general population = 50. 5 points is clinically meaningfully difference Percentiles provide an indication of how the patient's score ranks in relation to the general population. Higher percentile rankings indicate better function/quality of life. 50th percentile is the average of the general population and indicates half of respondents had a worse score. T-scores: mean of general population = 50. 5 points is clinically meaningfully difference Percentiles provide an indication of how the patient's score ranks in relation to the general population. Higher percentile rankings indicate better function/quality of life. 50th percentile is the average of the general population and indicates half of respondents had a worse score. OBJECTIVE MEASURES WITH LEVEL OF FUNCTION: Posture / Alignment Posture: Rounded shoulders;Forward head;Increased thoracic kyphosis;Comments Posture comment: Pt reports that current posture is related to pain but typically he has very good posture with chest out and shoulders back. Reflexes - Lower Extremity R Patellar: Normal R Achilles: Normal L Patellar: Normal L Achilles: Normal Spine Observations R Lumbar Spine Palpation Tenderness: No tenderness noted L Lumbar Spine Palpation Tenderness: Paraspinals(trunk) Sensation - Lumbar Sensation: Impaired Impaired Sensation: Lateral thigh (Lateral femoral cutaneous nerve)(Left) Impaired Lateral Thigh Comments: Pt has decreased sensation that is altered at anterior and lateral L thigh compared to R with numbness at times in B LEs. 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 R LE Strength: No myotomal weakness currently L LE Strength: asymmetrical myotomal weakness in L great toe extension and L ankle DF. Pt also reports intermittent difficulty with foot clearance during gait. L Ankle Dorsiflexion (L4): 4-/5 L Great Toes Extension (L5, S1): 3-/5 Special Tests - Hip and Spine Hip and Spine Special Tests: SLR Test SLR Test: Right Positive;Left Positive Gait Gait Observation: Pt has antalgic pattern. Education: Education Learning Preferences: Demonstration;Explanati on;Performance;Printed Materials Barriers: None Learning/educational needs: Plan of Care;Home exercise program;Posture;Body Mechanics Education Provided: Yes, see treatment interventions for education provided Education Provided To: Patient Education Mode/Type: Demonstration;Explanati on/Discussion;Literatur e/Printed Materials;Performance Response to Education/Teach Back: States/Identifies;Retur n Demonstration;Requires Review/Additional Education TREATMENT: Evaluation Therapeutic Exercise: 1: Pt was educated extensively on anatomy of symptomatic area, likely source of symptoms and rationale for recommended plan of care. The effects of posture and body mechanics explained. Pictures and a model of the spine were used to clarify all education. He was educated on his directional preference and the effects of flexion and extension of lumbar spine on disc mechanics. He was educated on the difference between centralization and peripheralization of symptoms with all precautions. The impact of all of these things on his ability to do his job were discussed at length and recommendations made. He was repeatedly instructed to stop any exercise or activity that causes increased pain, especially peripheral symptoms. 2: *prone with pillows under abdomen discussed as an option but he was advised that this will not likely be necessary. 3: *prone lying x3 minutes 4: *prone on elbows x3 minutes 5: *prone press ups 2x5 Skilled Intervention: Patient was educated in proper exercise technique and purpose for exercises. Reviewed and educated patient on additions/changes for home exercise program as above (*) Skilled judgment was provided in selection of appropriate interventions. Provided written instruction for home exercise program to facilitate proper performance and compliance. Correct performance of therapeutic exercises was facilitated with verbal, visual and tactile cuing. Patient education as noted. Billing: [facility]: Evaluation - Moderate Complexity (43595) Therapeutic Exercise (26531): 1:1 time: 30 minutes (2 units: 23-37 mins) Total time / Length of visit: 75 minutes Khoi Sahu PT [facility] CNOVon 07-11-2019 CNOV Office Visit (UCWSTR ) STEFAN BURTON ([id number]) 1985 M Date Time Provider Department 07/11/19 12:00 PM AMRITA SOFIA ([facility]) [facility] During your visit today, we recorded the following information about you: Temperature Pulse Respiration Blood pressure 98.2 degrees 110/minute 16/minute 136/94 Weight 149.7 kg Amrita Sofia APRN.CNP 07/11/2019 1:10 PM Signed Subjective HPI Stefan Ramon Micheal is a 33 year old male who presents with bilateral lower back and leg pain, worse on the left than the right. He has had this for 3 weeks. He has seen a different urgent care, ER and chiropractor for this. He has not had any improvement. ROS Objective Physical Exam Constitutional: He is oriented to person, place, and time and well-developed, well-nourished, and in no distress. Cardiovascular: Normal rate, regular rhythm and normal heart sounds. Pulmonary/Chest: Effort normal and breath sounds normal. No respiratory distress. He has no wheezes. He has no rales. Abdominal: Soft. He exhibits no distension and no mass. There is no abdominal tenderness. There is no rebound and no guarding. Musculoskeletal: Lumbar back: He exhibits decreased range of motion (pain with flexion, extension), tenderness (left SI joint), pain and spasm. He exhibits no bony tenderness and no swelling. Neurological: He is alert and oriented to person, place, and time. Gait normal. Reflex Scores: Patellar reflexes are 2+ on the right side and 2+ on the left side. Skin: Skin is warm and dry. No rash noted. No erythema. Nursing note and vitals reviewed. ASSESSMENT/PLAN: 1. Acute bilateral low back pain with bilateral sciatica - ICD9: 724.2, 724.3, ICD10: M54.42, M54.41 Symptoms consistent with degenerative disc disease - Prednisone burst- see orders - Muscle relaxant- see orders - PT consult - Xrays-FINDINGS: Shallow left convex lumbar curvature and satisfactory anteroposterior alignment. Mild asymmetrical L3-4 interspace narrowing with endplate sclerosis and marginal spurring and little to no narrowing of the L2-3 interspace. Shallow Schmorl's nodes at L1-2. No acute bony abnormality. ? IMPRESSION: ? L3-4 degenerative disc disease. ? Consider oblique views to better visualize L5 pars interarticularis. ? Counting reference: Lumbosacral junction. For the purposes of this report, L4-5 is considered the level of the iliac crest and there are 5 lumbar-type vertebrae. Anatomic Variants: None. ? Gse Mechanic: HARRIET Transcribe Date/Time: Jul 11 2019 12:39P ? Dictated by : Apoorva NAJERA MD - XR LUMBAR GENERAL 3V AP/LAT/L5-S1 - CONSULT TO PHYSICAL THERAPY- make appointment for evaluation - PREDNISONE 10 MG TABLET - CYCLOBENZAPRINE 10 MG TABLET - [facility]- if not improving with PT - Follow-up with your PCP in 3-5 days if symptoms have not improved or sooner if symptoms worsen - Discussed red flags and need for immediate medical evaluation if any occur. - Discussed supportive care treatment with fluids, rest and analgesia. - Discussed expected course of illness PRINCE Buitrago APRN.CNP 07/11/2019 1:02 PM Addendum ASSESSMENT/PLAN: 1. Acute bilateral low back pain with bilateral sciatica - ICD9: 724.2, 724.3, ICD10: M54.42, M54.41 Symptoms consistent with degenerative disc disease - Prednisone burst- see orders - Muscle relaxant- see orders - PT consult - Xrays-FINDINGS: Shallow left convex lumbar curvature and satisfactory anteroposterior alignment. Mild asymmetrical L3-4 interspace narrowing with endplate sclerosis and marginal spurring and little to no narrowing of the L2-3 interspace. Shallow Schmorl's nodes at L1-2. No acute bony abnormality. ? IMPRESSION: ? L3-4 degenerative disc disease. ? Consider oblique views to better visualize L5 pars interarticularis. ? Counting reference: Lumbosacral junction. For the purposes of this report, L4-5 is considered the level of the iliac crest and there are 5 lumbar-type vertebrae. Anatomic Variants: None. ? Gse Mechanic: HARRIET Transcribe Date/Time: Jul 11 2019 12:39P ? Dictated by : Apoorva NAJERA MD - XR LUMBAR GENERAL 3V AP/LAT/L5-S1 - CONSULT TO PHYSICAL THERAPY- make appointment for evaluation - PREDNISONE 10 MG TABLET - CYCLOBENZAPRINE 10 MG TABLET - [facility]- if not improving with PT - Follow-up with your PCP in 3-5 days if symptoms have not improved or sooner if symptoms worsen - Discussed red flags and need for immediate medical evaluation if any occur. - Discussed supportive care treatment with fluids, rest and analgesia. - Discussed expected course of illness Amrita Sofia APRN.TAR CHASER Acute Low Back Pain Overview: ? Eighty to 90 percent of people in the [place] will experience an episode of back pain at some time during their lives. ? Acute back pain refers to a brief episode of pain that comes on suddenly and lasts less than four weeks. Typically, pain improves within 2 weeks. ? The use of imaging (X-ray and MRI) is not recommended in most cases of acute low back pain. ? The exact cause of low back pain is often not identified but most people recover with simple treatment within a few weeks. Treatment: ? Acute back pain is almost always successfully treated with conservative (non-surgical) measures. ? Prolonged bed rest is not recommended and generally should not exceed 24-48 hours. Gradually resuming normal activities as soon as you are able is best. ? Your physician may recommend simple exercises to further speed your recovery. ? Assuming good posture while standing, sitting, sleeping, and driving may also help alleviate acute low back pain. ? Over the counter, non-prescription, pain relievers such as acetaminophen and ibuprofen may be used in your treatment of pain. ? Opioid or narcotic medications are not recommended, and you should refrain from the use of such medications. In fact, use of these drugs may prolong the amount of time it takes for you to recover. Follow Up: ? See your health care provider if: o You experience fever o The pain does not improve within 2 weeks or worsen o The pain progressively moves from your back into your leg(s) o You notice progressive weakness in your legs o You experience problems in your balance or walking o You notice difficulty controlling your bowels or bladder Amrita Sofia APRN.JOSE Burton, [id number] July 11, 2019 Referring Provider: SELF [[id number]] Allergies As of Date: 07/11/2019 Noted Allergy Reaction CODEINE 07/11/2019 16 - Unknown Date Reviewed: 07/11/2019 Reviewed by: Amrita (Jose) Kimberlyn - Fully Assessed Reason for Visit: Pain, Back [855] Cmt: x 3 weeks Primary Visit Diagnosis:Acute bilateral low back pain with bilateral sciatica [M54.42, M54.41] Order(s):XR LUMBAR GENERAL 3V AP/LAT/L5-S1 [6853356] Order #: [id number] FUTURE CONSULT TO PHYSICAL THERAPY [2330] Order #: [id number]: 1 FUTURE XR LUMBAR GENERAL 3V AP/LAT/L5-S1 [[id number]] Order #: [id number]. #:[id number] predniSONE (DELTASONE) 10 mg tabletTake 6 tabs for 3 days, then 4 tabs for 3 days, then 2 tabs for 3 days then 1 tab for 3 days with food.Disp: 39 tabletRfl: 0 cyclobenzaprine (FLEXERIL) 10 mg tabletTake 1 tablet by mouth three times daily as needed for Muscle Spasm.Disp: 12 tabletRfl: 0 CONSULT TO [facility] [[id number]] Order #: [id number]: 1 FUTURE Prescriptions as of 07/11/2019 Sig: PREDNISONE 10 MG TABLET Take 6 tabs for 3 days, then * CYCLOBENZAPRINE 10 MG TABLET Take 1 tablet by mouth three * Problem List As Of Date: 07/11/2019 (None) Other instructions from your clinician: ASSESSMENT/PLAN: 1. Acute bilateral low back pain with bilateral sciatica - ICD9: 724.2, 724.3, ICD10: M54.42, M54.41 Symptoms consistent with degenerative disc disease - Prednisone burst- see orders - Muscle relaxant- see orders - PT consult - Xrays-FINDINGS: Shallow left convex lumbar curvature and satisfactory anteroposterior alignment. Mild asymmetrical L3-4 interspace narrowing with endplate sclerosis and marginal spurring and little to no narrowing of the L2-3 interspace. Shallow Schmorl's nodes at L1-2. No acute bony abnormality. ? IMPRESSION: ? L3-4 degenerative disc disease. ? Consider oblique views to better visualize L5 pars interarticularis. ? Counting reference: Lumbosacral junction. For the purposes of this report, L4-5 is considered the level of the iliac crest and there are 5 lumbar-type vertebrae. Anatomic Variants: None. ? Gse Mechanic: HARRIET Transcribe Date/Time: Jul 11 2019 12:39P ? Dictated by : Apoorva NAJERA MD - XR LUMBAR GENERAL 3V AP/LAT/L5-S1 - CONSULT TO PHYSICAL THERAPY- make appointment for evaluation - PREDNISONE 10 MG TABLET - CYCLOBENZAPRINE 10 MG TABLET - [facility]- if not improving with PT - Follow-up with your PCP in 3-5 days if symptoms have not improved or sooner if symptoms worsen - Discussed red flags and need for immediate medical evaluation if any occur. - Discussed supportive care treatment with fluids, rest and analgesia. - Discussed expected course of illness Amrita Sofia APRN.TAR CHASER Acute Low Back Pain Overview: ? Eighty to 90 percent of people in the [place] will experience an episode of back pain at some time during their lives. ? Acute back pain refers to a brief episode of pain that comes on suddenly and lasts less than four weeks. Typically, pain improves within 2 weeks. ? The use of imaging (X-ray and MRI) is not recommended in most cases of acute low back pain. ? The exact cause of low back pain is often not identified but most people recover with simple treatment within a few weeks. Treatment: ? Acute back pain is almost always successfully treated with conservative (non-surgical) measures. ? Prolonged bed rest is not recommended and generally should not exceed 24-48 hours. Gradually resuming normal activities as soon as you are able is best. ? Your physician may recommend simple exercises to further speed your recovery. ? Assuming good posture while standing, sitting, sleeping, and driving may also help alleviate acute low back pain. ? Over the counter, non-prescription, pain relievers such as acetaminophen and ibuprofen may be used in your treatment of pain. ? Opioid or narcotic medications are not recommended, and you should refrain from the use of such medications. In fact, use of these drugs may prolong the amount of time it takes for you to recover. Follow Up: ? See your health care provider if: o You experience fever o The pain does not improve within 2 weeks or worsen o The pain progressively moves from your back into your leg(s) o You notice progressive weakness in your legs o You experience problems in your balance or walking o You notice difficulty controlling your bowels or bladder Amrita Sofia APRN.TAR CHASER Stefan Burton, [id number] July 11, 2019 Prescriptions ordered this encounter Disp Refills Start End PREDNISONE 10 MG TABLET 39 t* 0 07/11/2019 07/23/2019 Sig: Take 6 tabs for 3 days, then 4 tabs for 3 days, then 2 tabs for 3 days then 1 tab for 3 days with food. CYCLOBENZAPRINE 10 MG TABLET 12 t* 0 07/11/2019 Route: ORAL Sig: Take 1 tablet by mouth three times daily as needed for Muscle Spasm. Disposition: Return in about 1 week (around 07/18/2019) for scedule with PT for evaluation. Follow-up and Disposition History Recorded Encounter Status:Closed by AMRITA SOFIA on 07/11/19 [facility] PROGRESSon 07-11-2019 PROGRESS HNO ID: [id number] Author: Beulah Graham (Tech) Service: ? Author Type: Data Analyst Report Writer Type: Progress Notes Filed: 07/11/2019 12:32 PM Note Text: Radiology Service Progress Note PATIENT NAME: Stefan Burton DATE OF SERVICE: July 11, 2019 TIME: 12:32 PM PATIENT IDENTITY VERIFICATION COMPLETED USING TWO (2) IDENTIFIERS: Name and Date of confirmed by patient verbally. FALL SCREENING: Has the patient had 2 falls in the last year or 1 fall with injury or currently using an Ambulatory Assistive Device (Walker, Cane, Wheelchair, Crutches, etc.)? No PATIENT GENDER DATA: Male PATIENT RELEVANT IMPLANT DATA REVIEWED: Not Applicable RADIOLOGY DEPARTMENT: General X-ray: Exam(s) Completed: Spine X-Ray(s): Lumbar AP / LAT / L5-S1 PERIPHERAL IV DATA: Not applicable SIGNED BY: Beulah Graham July 11, 2019 12:32 PM [facility] PROGRESS HNO ID: [id number] Author: Amrita [facility]) Kimberlyn Service: ? Author Type: Nurse Practitioner Type: Progress Notes Filed: 07/11/2019 1:10 PM Note Text: Subjective HPI Stefan Burton is a 33 year old male who presents with bilateral lower back and leg pain, worse on the left than the right. He has had this for 3 weeks. He has seen a different urgent care, ER and chiropractor for this. He has not had any improvement. ROS Objective Physical Exam Constitutional: He is oriented to person, place, and time and well-developed, well-nourished, and in no distress. Cardiovascular: Normal rate, regular rhythm and normal heart sounds. Pulmonary/Chest: Effort normal and breath sounds normal. No respiratory distress. He has no wheezes. He has no rales. Abdominal: Soft. He exhibits no distension and no mass. There is no abdominal tenderness. There is no rebound and no guarding. Musculoskeletal: Lumbar back: He exhibits decreased range of motion (pain with flexion, extension), tenderness (left SI joint), pain and spasm. He exhibits no bony tenderness and no swelling. Neurological: He is alert and oriented to person, place, and time. Gait normal. Reflex Scores: Patellar reflexes are 2+ on the right side and 2+ on the left side. Skin: Skin is warm and dry. No rash noted. No erythema. Nursing note and vitals reviewed. ASSESSMENT/PLAN: 1. Acute bilateral low back pain with bilateral sciatica - ICD9: 724.2, 724.3, ICD10: M54.42, M54.41 Symptoms consistent with degenerative disc disease - Prednisone burst- see orders - Muscle relaxant- see orders - PT consult - Xrays-FINDINGS: Shallow left convex lumbar curvature and satisfactory anteroposterior alignment. Mild asymmetrical L3-4 interspace narrowing with endplate sclerosis and marginal spurring and little to no narrowing of the L2-3 interspace. Shallow Schmorl's nodes at L1-2. No acute bony abnormality. ? IMPRESSION: ? L3-4 degenerative disc disease. ? Consider oblique views to better visualize L5 pars interarticularis. ? Counting reference: Lumbosacral junction. For the purposes of this report, L4-5 is considered the level of the iliac crest and there are 5 lumbar-type vertebrae. Anatomic Variants: None. ? Gse Mechanic: HARRIET Transcribe Date/Time: Jul 11 2019 12:39P ? Dictated by : Apoorva NAJERA MD - XR LUMBAR GENERAL 3V AP/LAT/L5-S1 - CONSULT TO PHYSICAL THERAPY- make appointment for evaluation - PREDNISONE 10 MG TABLET - CYCLOBENZAPRINE 10 MG TABLET - [facility]- if not improving with PT - Follow-up with your PCP in 3-5 days if symptoms have not improved or sooner if symptoms worsen - Discussed red flags and need for immediate medical evaluation if any occur. - Discussed supportive care treatment with fluids, rest and analgesia. - Discussed expected course of illness Amrita Sofia APRN.TAR CHASER [facility] XR LUMBAR 3V AP/LAT/L5-S1on 07-11-2019 XR LUMBAR 3V AP/LAT/L5-S1 * * *Final Report* * * DATE OF EXAM: Jul 11 2019 12:25PM [id number] - XR LUMBAR 3V AP/LAT/L5-S1 / PROCEDURE REASON: multiple diagnoses * * * * Physician Interpretation * * * * EXAM: XR LUMBAR 3V AP/LAT/L5-S1 HISTORY: Acute bilateral low back pain with bilateral sciatica Acute bilateral low back pain with bilateral sciatica. VIEWS: Standing AP, lateral, coned lateral L5-S1. COMPARISON: No. FINDINGS: Shallow left convex lumbar curvature and satisfactory anteroposterior alignment. Mild asymmetrical L3-4 interspace narrowing with endplate sclerosis and marginal spurring and little to no narrowing of the L2-3 interspace. Shallow Schmorl's nodes at L1-2. No acute bony abnormality. IMPRESSION: L3-4 degenerative disc disease. Consider oblique views to better visualize L5 pars interarticularis. Counting reference: Lumbosacral junction. For the purposes of this report, L4-5 is considered the level of the iliac crest and there are 5 lumbar-type vertebrae. Anatomic Variants: None. Gse Mechanic: PSCB Transcribe Date/Time: Jul 11 2019 12:39P Dictated by : Apoorva NAJERA MD This examination was interpreted and the report reviewed and electronically signed by: Apoorva NAJERA MD on Jul 11 2019 12:54PM EST [id number] [facility] Vital Signs Date Time Vital Sign Value Performing Clinician Faci lity 09-17-2024 12:47-0400 Body height 190.5 cm Juan Manuel Beaulieu MD MPH Work Phone: [facility] 09-17-2024 12:47-0400 Body mass index (BMI) [Ratio] 39.75 kg/m2 Juan Manuel Beaulieu MD MPH Work Phone: [facility] 09-17-2024 12:47-0400 Body weight 144.24 kg Juan Manuel Beaulieu MD MPH Work Phone: [facility] 09-17-2024 12:47-0400 Diastolic blood pressure 79 mm[Hg] Juan Manuel Beaulieu MD MPH Work Phone: [facility] 09-17-2024 12:47-0400 Heart rate 74 /min Juan Manuel Beaulieu MD MPH Work Phone: [facility] 09-17-2024 12:47-0400 Systolic blood pressure 155 mm[Hg] Juan Manuel Beaulieu MD MPH Work Phone: [facility] 06-04-2024 15:39-0400 Body height 190.5 cm Juan Manuel Beaulieu MD MPH Work Phone: [facility] 06-04-2024 15:39-0400 Body mass index (BMI) [Ratio] 39.75 kg/m2 Juan Manuel Beaulieu MD MPH Work Phone: [facility] 06-04-2024 15:39-0400 Body weight 144.24 kg Juan Manuel Beaulieu MD MPH Work Phone: [facility] 06-04-2024 15:39-0400 Diastolic blood pressure 89 mm[Hg] Juan Manuel Beaulieu MD MPH Work Phone: [facility] 06-04-2024 15:39-0400 Heart rate 116 /min Juan Manuel Beaulieu MD MPH Work Phone: [facility] 06-04-2024 15:39-0400 Systolic blood pressure 170 mm[Hg] Juan Manuel Beaulieu MD MPH Work Phone: [facility] Encounters Encounter Date Encounter Type Care Provider Facility Start: 09-17-2024 End: 09-17-2024 Patient encounter procedure Juan Manuel Beaulieu MD MPH Work Phone: [facility] Comment on above: Admission for vasect zeynep (Primary Dx) Start: 09-17-2024 End: 09-17-2024 ambulatory [facility] Start: 06-04-2024 End: 06-04-2024 Office outpatient new 45 minutes Juan Manuel Beaulieu MD MPH Work Phone: [facility] Comment on above: Admission for steril ization Start: 06-04-2024 End: 06-04-2024 ambulatory [facility] Ambulatory Start: 09-28-2023 ambulatory [facility] Facility:[facility] Procedures Date Procedure Procedure Detail Performing Clinician Start: 09-17-2024 Vasectomy uni/bi spx w/postop semen exams Juan Manuel Beaulieu MD MPH Work Phone: Plan of Treatment Date Care Activity Detail Author Start: 12-12-2035 Zoster Vaccines (1 of 2) Zoste r Vaccines (1 of 2) [facility] Start: 10-22-2024 Influenza vaccination [facility] Start: 09-03-2024 End: 09-03-2024 Patient encounter procedure 09/03/2024 11:30 AM EDT Procedure Visit [facility] [address] [place] [address] Juan Manuel Genao MD MPH [address] [place] [address] [facility] Start: 10-23-2023 COVID-19 Vaccine ( season) COVID-19 Vaccine ( season) [facility] Start: 2012 HPV Vaccines (1 - 3- dose standard series) HPV Vaccines (1 - 3-dose standard series) [facility] Start: 12-12-2007 DTaP/Tdap/Td Vaccine s (1 - Tdap) DTaP/Tdap/Td Vaccines (1 - Tdap) [facility] Start: 2004 Hepatitis B Vaccines (1 of 3 - 19+ 3-dose series) Hepatitis B Vaccines (1 of 3 - 19+ 3-dose series) [facility] Start: 1998 Varicella vaccination Varicell a Vaccines (1 of 2 - 13+ 2-dose series) [facility] Start: 1986 MMR Vaccines (1 of 1 - Standard series) MMR Vaccines (1 of 1 - Standard series) [facility] Start: 1985 Lipid panel Lipid Panel [facility] Start: 1985 Yearly Adult Physical Yearly Adult P hysical [facility] Payers Date Payer Category Payer Self-pay 2022 Managed Care (Private) [id number] 2022 Unknown [id number] 1985 Unknown [id number] 1985 Unknown [id number] [id number] Unknown [id number] Social History Date Type Detail Facility Start: 06-04-2024 Tobacco smoking stat us NHIS Never smoked tobacco [facility] Work Phone: Start: 06-04-2024 Tobacco use and exposure Smokeless tobacco non-user [facility] Work Phone: Start: 06-04-2024 End: 09-17-2024 Alcoholic beverage intake Lifetime non-drinker (finding) [facility] Work Phone: Start: 06-04-2024 End: 09-17-2024 History of Social function [facility] Work Phone: Start: 06-04-2024 End: 09-17-2024 Tobacco use panel [facility] Work Phone: Start: 1985 [facility] Start: 05-25-2024 End: 06-04-2024 Exposure to SARS-CoV-2 (event) Not sure [facility] Start: 07-02-2022 Sex Male [facility] Functional Status Date Assessment Result Facility 09-17-2024 Patient Health [facility] ionnaire 2 item (PHQ-2) [Reported] [facility] Work Phone: History of Present illness Narrative 09-17-2024 Juan Manuel Beaulieu MD MPH - 09/17/2024 1:00 PM EDT Note Date & Type Note Facility 09-17-2024 History of Present illness Narrative Associated Order(s): Vasectomy Post-Procedure Diagnose(s): Admission for vasectomy Patient ID: Stefan Burton is a 38 y.o. male. Vasectomy Date/Time: 09/17/2024 1:25 PM Performed by: Juan Manuel Beaulieu MD MPH Authorized by: Juan Manuel Beaulieu MD MPH Procedure discussed: discussed risks, benefits, and alternatives Sampler Radioactive Waste present: yes Timeout: timeout called immediately prior to procedure Prep: patient was prepped and draped in usual sterile fashion Prep type: Betadine Anesthesia: local anesthesia used Local anesthetic: lidocaine without epinephrine Procedure Details: Indications: desire for sterilization Laterality: bilateral Incisions: 2 Right Vas Deferens: Divided: yes Hemoclips applied: yes Cauterized: yes Left Vas Deferens: Divided: yes Hemoclips applied: yes Cauterized: yes Skin closure: suture Closure suture type: 3-0 chromic gut Post-Procedure Details: Pathology sent to lab for analysis: yes Outcome: patient tolerated procedure well with no complications Post-procedure interventions: sterile dressing applied and wound care instructions given Dressing type: antibiotic ointment Disposition: discharged home in satisfactory condition Plan Fu in 12 weeks with post VAS SA documented in this encounter [facility] Work Phone: History of Present illness Narrative 06-04-2024 Juan Manuel Beaulieu MD MPH - 06/04/2024 3:15 PM EDTJuan Francisco Felton CMA - 06/04/2024 3:15 PM EDT Note Date & Type Note Facility 06-04-2024 History of Present illness Narrative Subjective Patient ID: Stefan Burton is a 38 y.o. male HPI 38 y.o. male who presented for vasectomy evaluation, the patient is with 2 children aged. I had a long and extensive discussion with the patient regarding vasectomy. I informed him that he should consider this procedure as permanent and he should be 100% sure about proceeding with it. I explained to him in detail the steps of the vasectomy, I also had a long discussion with him regarding the possible side effects including infection, hematoma, bleeding, chronic pain, testicular congestion, injury to surrounding structure. We also discussed the multiple studies linking vasectomy to prostate cancer I explained to him the correlation between this procedure and prostate cancer. The patient verbalized understanding of all the risks and benefits and would like to proceed. I explained to him that there is a small chance of spontaneous return of the semen because of reconnection of his vas ending. I also told him that he is not close to the sterile unless it is proven by a post vasectomy semen analysis after around 3 months. I also explained to him that some man with a much longer to clear his semen from there, this most could take up to 6 months during which he would be still able to proceed. Review of Systems All systems were reviewed. Anything negative was noted in the HPI. Objective Physical Exam General: Well developed, well nourished, alert and cooperative, appears in no acute distress Eyes: Non-injected conjunctiva, sclera clear, no proptosis Cardiac: Extremities are warm and well perfused. No edema, cyanosis or pallor Lungs: Breathing is easy, non-labored. Speaking in clear and complete sentences. Normal diaphragmatic movement MSK: Ambulatory with steady gait, unassisted Neuro: Alert and oriented to person, place, and time Psych: Demonstrates good judgment and reason, without hallucinations, abnormal affect or abnormal behaviors Skin: No obvious lesions, no rashes No CVA tenderness bilaterally No suprapubic pain or discomfort No past medical history on file. No past surgical history on file. Assessment/Plan Vasectomy Evaluation 38 y.o. male who presents for the above condition, Vasectomy Evaluation Patient presents today for evaluation of vasectomy. We had an extensive discussion about the procedure and post-procedure protocol. We discussed that vasectomy is intended to be a permanent form of contraception. There are options for fertility post vasectomy, including vasectomy reversal and sperm retrieval but these are not always successful and can be rather expensive. We highlighted that it is not an immediate form of contraception, and that another form is required until vas occlusion is confirmed with a post-vasectomy semen analysis. We recommend that the patient refrain from ejaculation for 1 week post-procedure and we would be checking a post-vasectomy semen analysis in 2-3 months, or 15-20 ejaculates. Need for repeat vasectomy is very low, <1%. There is a very small risk for after vasectomy (1 in 2,000). We define a successful vasectomy by achieving azoospermia or less than 100,000 non-motile sperm on post-vasectomy semen analysis. We discussed that the procedure would be done in the office under local anesthesia. Complications were discussed including but not limited to pain, which can be chronic in nature, bleeding/hematoma formation, and infection. We recommended ice and rest for the next 48-72hrs. Patient may be prescribed an anti-inflammatory for pain control. Patient is instructed to refrain from strenuous activity for 2 weeks. No barriers to learning were identified. After all of the patient s questions were satisfactorily answered, he expressed understanding of the risks of surgery and wishes to proceed with vasectomy. Plan: - Schedule patient for vasectomy E&M visit today is associated with current or anticipated ongoing medical care services related to a patient's single, serious condition or a complex condition. 06/04/2024 Scribe Attestation By signing my name below, I, Lawson Richarderson, Mimiibtiffany attest that this documentation has been prepared under the direction and in the presence of Dr. Juan Manuel Beaulieu. Patient presents to the office today for a Vasectomy Consult... Patient is and has 2 children... documented in this encounter [facility] Work Phone: Evaluation note Note Date & Type Note Facility Evaluation note Diagnosis Admission for sterilization Sterilization documented in this encounter [facility] Work Phone: Evaluation note Note Date & Type Note Facility Evaluation note Diagnosis Admission for vasectomy- Primary Sterilization documented in this encounter [facility] Work Phone: Summary Purpose Family History No Family History Records FoundNo Family History Records FoundNo Family History Records Found Advance Directives No Advanced Directives Records FoundNo Advanced Directives Records FoundNo Advanced Directives Records Found Additional Source Comments (unrecognized sect ion and content) No Status Records FoundNo Status Records FoundNo Status Records Found INFORMATION SOURCE (unrecogn ized section and content) DATE CREATED AUTHOR 03/20/2020 [facility] DATE CREATED AUTHOR AUTHOR'S ORGANIZ ATION 09/30/2023 [facility] DATE CREATED AUTHOR AUTHOR'S ORGANIZ ATION 09/18/2024 [facility] Reason for Visit (unrecogniz ed section and content) Reason Comments Sterilization Specialty Diagnoses / Procedures Referred By Contac t Referred To Contact Urology Diagnoses Encounter for sterilization Procedures CO VASECTOMY UNI/BI SPX W/POSTOP SEMEN EXAMS [facility] [address] [place] [address] Phone: tel: fax: Juan Manuel Genao MD [facility] [address] [place] [address] Phone: tel: fax: Referral ID Status Reason Start Date Expiration Date V isits Requested Visits Authorized [id number] Authorized 08/28/2024 08/28/2025 1 1 FOR RECORDS PERTAINING TO PATIENTS WHO ARE OR HAVE BEEN ENROLLED IN A CHEMICAL DEPENDENCY/SUBSTANCEABUSE PROGRAM, SOME INFORMATION MAY BE OMITTED. This clinical summary was aggregated from multiple sources. Caution should be exercised in using it in the provision of clinical care. This summary normalizes information from multiple sources, and as a consequence, information in this document may materially change the coding, format and clinical context of patient data. In addition, data may be omitted in some cases. CLINICAL DECISIONS SHOULD BE BASED ON THE PRIMARY CLINICAL RECORDS. [facility] [employer] [facility]. provides no warranty or guarantee of the accuracy or completeness of information in this document.
[2024-10-23 13:03] LABS: Creatinine, Urine (random) 204.00 mg/dL (39.00-259.00); Microalbumin,Random Urine 76.2 mg/L (<20 mg/L)
== END | disposition home or self-care (01) ==
LOC: MFPLAB 08:44
PROVIDERS: PCP Family Medicine; Referring Provider Family Medicine; Visit Provider Family Medicine
DX: E11.9 Type 2 diabetes mellitus without complications (principal)
CPT/HCPCS: 82043; 82570